=== PATIENT | male | born 1985 | race Caucasian/White ===

== ENCOUNTER 2016-11-21 17:04 | Emergency (ER) | payer SELFPAY ==
[2016-11-21 17:34] VITALS: BP 132/89; PULSE 73; TEMP 98.9
[2016-11-21] MEDS ORDERED: SODIUM CHLORIDE 1,000 ML IV STA (17:51)
--- NOTE | 2016-11-21 17:57 | PDOC ---
History of Present Illness - General Chief Complaint: Hematuria Stated Complaint: BLOOD IN THE URINE,ABD PAIN Time Seen by Provider: 11/21/16 17:39 History Source: Patient Exam Limitations: No Limitations - History of Present Illness Initial Comments: 11/21/16 17:52 Patient is a 31M with history of anxiety, depression and adhd here today complaining of bloody discharge from the tip of the urethra and syncope. He states that he was trying to go to the bathroom when he saw a few drops of bloody discharge from his urethra. He then sat down, started feeling dizzy and states that he passed out for an unknown amount of time. He doesn't think it was more than a few seconds. He felt normal immediately afterwards. He denies any chest pain, shortness of breath or palpitations before or after the event. He is now complaining of suprapubic abdominal pain that started around this is event. He is concerned that his belt caused some sort of internal bleeding. He endorses nausea and chills, denies vomiting and fever. He denies flank pain. He denies a history of kidney stones. Patient denies testicular pain. Denies being sexually active for past 5 years. Past History - Past Medical History Allergies/Adverse Reactions: Allergies Allergy/AdvReac Type Severity Reaction Status Date / Time No Known Allergies Allergy Verified 11/21/16 17:31 Home Medications: Ambulatory Orders Bupropion HCl [Wellbutrin -] 75 mg PO BID 11/21/16 Psychiatric Problems: Yes (adhd depression/anxiety) - Suicide/Smoking/Psychosocial Hx Smoking History: Current every day smoker Have you smoked in the past 12 months: Yes Number of Cigarettes Smoked Daily: 7 Information on smoking cessation initiated: No Hx Alcohol Use: No Drug/Substance Use Hx: No Review of Systems - Review of Systems Comments:: 11/21/16 17:56 GENERAL/CONSTITUTIONAL: No fever. No weakness. Positive for chills HEAD, EYES, EARS, NOSE AND THROAT: No change in vision. No sore throat. CARDIOVASCULAR: No chest pain or shortness of breath RESPIRATORY: No cough, wheezing, or hemoptysis. GASTROINTESTINAL: Positive for nausea. Negative for vomiting, diarrhea or constipation. GENITOURINARY: Positive for dysuria. Negative for increased frequency. MUSCULOSKELETAL: No joint or muscle swelling or pain. No neck or back pain. SKIN: No rash NEUROLOGIC: Positive for headache. Negative for vertigo, loss of consciousness, or change in strength/sensation. ENDOCRINE: No increased thirst. No abnormal weight change HEMATOLOGIC/LYMPHATIC: No anemia, easy bleeding, or history of blood clots. ALLERGIC/IMMUNOLOGIC: No hives or skin allergy. *Physical Exam - Vital Signs Last Vital Signs Temp Pulse Resp BP Pulse Ox 98.9 F 73 20 132/89 97 11/21/16 17:32 11/21/16 17:32 11/21/16 17:32 11/21/16 17:32 11/21/16 17:32 - Physical Exam Comments: 11/21/16 17:57 GENERAL: Awake, alert, and fully oriented, in no acute distress HEAD: No signs of trauma, normocephalic, atraumatic EYES: PERRLA, EOMI, sclera anicteric, conjunctiva clear ENT: Auricles normal inspection, hearing grossly normal, nares patent, oropharynx clear without exudates. Moist mucosa LUNGS: No distress, speaks full sentences, clear to auscultation bilaterally HEART: Regular rate and rhythm, normal S1 and S2, no murmurs, rubs or gallops, peripheral pulses normal and equal bilaterally. ABDOMEN: Soft, suprapubic tenderness, no CVA tenderness normoactive bowel sounds. No guarding, no rebound. No masses : Two testicles, nontender, no discharge from urethra EXTREMITIES: Normal inspection, Normal range of motion, no edema. No clubbing or cyanosis. NEUROLOGICAL: Cranial nerves II through XII grossly intact. Normal speech, normal gait, no focal sensorimotor deficits SKIN: Warm, Dry, normal turgor, no rashes or lesions noted. ED Treatment Course - LABORATORY CBC & Chemistry Diagram: 11/21/16 18:00 11/21/16 18:00 - RADIOLOGY Radiology Studies Ordered: Category Date Time Status CXRPORT [CHEST X-RAY PORTABLE*] [RAD] Stat Radiology 11/21/16 17:51 Ordered Medical Decision Making - Medical Decision Making 11/21/16 18:00 Patient is a 31M with history of anxiety, adhd, and depression here today complaining of syncope and bloody discharge from urethra. Vital signs stable and normal. Currently no discharge from the urethra. Low suspicion for testicular torsion. Suspect syncopal episode was vasovagal but will rule out cardiac etiology. 11/21/16 18:57 Laboratory Tests 10/02/17 10/02/17 18:00 18:00 BUN 18 Creatinine 1.1 Creat Clearance w eGFR > 60 Urine Blood 2+ H Urine RBC 141 Urine WBC 4 CMP shows normal kidney function, ua shows blood and RBCs, no sign of infection 11/21/16 19:00 CXR shows no acute cardiopulmonary process. 11/21/16 19:[address] Umana. Ultrasound pending, EKG pending. Mostly likely will discharge with urology follow up. *DC/Admit/Observation/Transfer Diagnosis at time of Disposition: Hematuria Qualifiers: Hematuria type: unspecified type Qualified Code(s): R31.9 - Hematuria, unspecified
[2016-11-21 18:23] LABS: URINE APPEARANCE SLCLOUDY; URINE BILIRUBIN NEGATIVE (NEGATIVE); URINE BLOOD 2+ (NEGATIVE); URINE COLOR YELLOW; URINE GLUCOSE (UA) NEGATIVE (NEGATIVE); URINE KETONE NEGATIVE (NEGATIVE); URINE LEUK ESTERASE NEGATIVE (NEGATIVE); URINE NITRITE NEGATIVE (NEGATIVE); URINE PROTEIN NEGATIVE (NEGATIVE); URINE UROBILINOGEN NEGATIVE mg/dL (0.2-1.0)
[2016-11-21 18:43] LABS: URINE MUCUS RARE; URINE RBC 141 /hpf (0-3); URINE WBC 4 /hpf (3-5)
[2016-11-21 18:50] LABS: ALBUMIN 4.2 g/dl (3.4-5.0); ANION GAP 5 (8-16); CO2 30 mmol/L (21-32); CREATININE 1.1 mg/dL (0.7-1.3); GLUCOSE,RANDOM 96 mg/dL (74-106); SGOT/AST 9 U/L (15-37); SGPT/ALT 17 U/L (12-78)
[2016-11-21 18:53] LABS: ALK PHOS 75 U/L (45-117); BILIRUBIN,TOTAL 0.3 mg/dL (0.2-1.0); CPK 204 IU/L (39-308); TOT PROT 7.7 g/dl (6.4-8.2); TROPONIN I < 0.02 ng/ml (0.00-0.05)
--- NOTE | 2016-11-21 19:04 | PDOC ---
Attending Attestation - Resident Resident Name: Rusty Unger - ED Attending Attestation I have performed the following: I have examined & evaluated the patient, The case was reviewed & discussed with the resident, I agree w/resident's findings & plan, Exceptions are as noted - Medical Decision Making 11/21/16 19:02 A portion of this note was written by my scribe, under my supervision. Vital Signs Temp Pulse Resp BP Pulse Ox 98.9 F 73 20 132/89 97 11/21/16 17:32 11/21/16 17:32 11/21/16 17:32 11/21/16 17:32 11/21/16 17:32 31-year-old male with past medical history of anxiety, depression presents with hematuria today. Patient reports that he had one episode of hematuria with some mild dysuria and certainly discomfort but no fevers, chills. Reports a first- time episode. Lasix active 6 years ago. No discharge or testicular tenderness. Patient's saw his hematuria, became nervous and syncopized. Denied chest pain or shortness of breath. Patient woke up and felt like his baseline came to the ED. I suspect that the patient sick please likely secondary to vasovagal syncope. However, obtain EKG and blood work. Urinalysis to Ross cystitis. Patient has no CVA tenderness at this time. We'll obtain a bladder ultrasound to evaluate for potentially structural abnormalities. At this time, if workup is unremarkable and the patient feels well, the patient will ultimately need follow-up with urologist for further workup for hematuria. <Thuan Rob - Last Filed: 11/21/16 19:02> - HPI HPI: 11/21/16 19:12 The patient is a 31 year old male with no significant past medical history who presents complaining of hematuria/bloody penile discharge noted today. Patient states he was at home playing video games when he went to the bathroom and noted a small amount of blood at the tip of his urethra. He also notes some mild suprapubic pain. States he was not urinating at this time. He became nervous and subsequently lost conscious for a few minutes. He regained consciousness on his own. No head trauma or injury. No flank pain. No dysuria. No fever, chills, nausea, or vomiting. He reports he has not been sexually active in approximately 5 years. - Physicial Exam PE: 11/21/16 19:15 GENERAL: Awake, alert, and fully oriented, in no acute distress HEAD: No signs of trauma EYES: PERRLA, EOMI, sclera anicteric, conjunctiva clear ENT: Auricles normal inspection, hearing grossly normal, nares patent, oropharynx clear without exudates. Moist mucosa NECK: Normal ROM, supple, no lymphadenopathy, JVD, or masses LUNGS: Breath sounds equal, clear to auscultation bilaterally. No wheezes, and no crackles HEART: Regular rate and rhythm, normal S1 and S2, no murmurs, rubs or gallops ABDOMEN: +Mild suprapubic tenderness to palpation. No CVA tenderness. Soft, normoactive bowel sounds. No guarding, no rebound. No masses EXTREMITIES: Normal range of motion, no edema. No clubbing or cyanosis. No cords, erythema, or tenderness NEUROLOGICAL: Cranial nerves II through XII grossly intact. Normal speech, normal gait SKIN: Warm, Dry, normal turgor, no rashes or lesions noted. PENILE EXAM: Circumcised penis. Nontender scrotum. No lesions noted. - Medical Decision Making 11/21/16 19:16 Documentation prepared by Sana Tejeda, acting as manager medical writing for Thuan Rob MD. <Sana Tejeda - Last Filed: 11/21/16 19:16>
--- NOTE | 2016-11-21 19:07 | PDOC ---
*Physical Exam - Vital Signs Last Vital Signs Temp Pulse Resp BP Pulse Ox 98.9 F 73 20 132/89 97 11/21/16 17:32 11/21/16 17:32 11/21/16 17:32 11/21/16 17:32 11/21/16 17:32 ED Treatment Course - LABORATORY CBC & Chemistry Diagram: 11/21/16 18:00 11/21/16 18:00 - ADDITIONAL ORDERS Additional order review: Laboratory Results 11/21/16 11/21/16 18:00 18:00 Sodium 142 Potassium 3.9 Chloride 107 Carbon Dioxide 30 Anion Gap 5 L BUN 18 Creatinine 1.1 Creat Clearance w eGFR > 60 Random Glucose 96 Calcium 9.0 Total Bilirubin 0.3 AST 9 L ALT 17 Alkaline Phosphatase 75 Creatine Kinase 204 Troponin I < 0.02 Total Protein 7.7 Albumin 4.2 Urine Color Yellow Urine Appearance Slcloudy Urine pH 6.0 Urine Protein Negative Urine Glucose (UA) Negative Urine Ketones Negative Urine Blood 2+ H Urine Nitrite Negative Urine Bilirubin Negative Urine Urobilinogen Negative Urine RBC 141 Urine WBC 4 Ur Epithelial Cells Rare Urine Mucus Rare - Medications Given in the ED: ED Medications Discontinued Medications Generic Name Dose Route Start Last Admin Trade Name Freq PRN Reason Stop Dose Admin Sodium Chloride 1,000 mls @ 1,000 mls/hr 11/21/16 17:51 11/21/16 17:56 Normal Saline - IV 11/21/16 18:50 1,000 mls/hr ASDIR STA Administration Medical Decision Making - Medical Decision Making 11/21/16 19:07 Care taken over from Dr. Unger. Pending CBC, EKG, Bladder/Renal U/s 11/21/16 20:36 CBC-unremarkable, Renal and bladder u/s unremarkable. Likely vasovagal syncope. EKG- Sinus bradycardia, HR-50, otherwise unremarkable EKG Patient to be discharged with close f/u with urologist *DC/Admit/Observation/Transfer Diagnosis at time of Disposition: Hematuria Qualifiers: Hematuria type: unspecified type Qualified Code(s): R31.9 - Hematuria, unspecified - Discharge Dispostion Disposition: HOME Condition at time of disposition: Stable - Referrals Referrals: Shalom Reyes MD [Staff Physician] - - Patient Instructions Printed Discharge Instructions: Blood in Urine Additional Instructions: Please follow up with a urologist within 1 week. A referral has been provided for you. If you have chest pain, shortness of breath, or any new/worsening symptoms, please come back to the hospital immediately.
[2016-11-21 19:10] LABS: MCH 30.6 pg (25.7-33.7); MCHC 34.6 g/dl (32.0-35.9); MEAN CELL VOLUME 88.5 fl (80-96); MEAN PLT VOLUME 8.9 fl (7.5-11.1); PLATELET COUNT 224 K/MM3 (134-434); RDW 13.6 % (11.9-15.9); WHITE BLOOD COUNT 9.7 K/mm3 (4.0-10.0)
--- NOTE | 2016-11-22 09:36 | EKG ---
Test Reason : Blood Pressure : / mmHG Vent. Rate : 050 BPM Atrial Rate : 050 BPM P-R Int : 168 ms QRS Dur : 096 ms QT Int : 422 ms P-R-T Axes : 046 041 048 degrees QTc Int : 384 ms SINUS BRADYCARDIA OTHERWISE NORMAL ECG NO PREVIOUS ECGS AVAILABLE Confirmed by YEYO PETERSON MD ([id number]) on 11/22/2016 9:35:40 AM Referred By: Confirmed By:YEYO PETERSON MD
== END 2016-11-21 22:20 | disposition home or self-care (01) ==
LOC: JER 17:04
PROC: 3E0337Z Introduction of Electrolytic and Water Balance Substance into Peripheral Vein, Percutaneous Approach (ICD-10-PCS; principal; 2016-11-21)
DX: R31.9 Hematuria, unspecified (principal); R55 Syncope and collapse; F41.9 Anxiety disorder, unspecified; F32.9 Major depressive disorder, single episode, unspecified; F90.9 Attention-deficit hyperactivity disorder, unspecified type
CPT/HCPCS: 36415; 71010-TC; 76775-TC; 76856-TC; 80053; 81003; 81015; 82553; 84484; 85027; 93005; 93010; 99283-25